=== PATIENT | male | born 1935 | race Caucasian/White ===

== ENCOUNTER 2017-12-12 10:07 | Inpatient (IN) ==
[2017-12-12] MEDS: 0.9 % SODIUM CHLORIDE 1,000 ML IV SCH ×2 (10:25→14:29)
--- NOTE | 2017-12-12 10:36 | Emergency Department Note ---
Male Urogenital HPI - General Chief complaint: Urogenital-Male Stated complaint: UTI/decreased loc Time Seen by Provider: 12/12/17 10:25 Source: EMS Mode of arrival: EMS Limitations: altered mental status - History of Present Illness HPI Narrative: 82-year-old male [facility] for a history of some hematuria. 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 Patient has a history of seizure disorders been having seizure frequently in the last 2 months he is currently on Keppra. Is any chest pain no shortness of breath CT abdomen pelvis have been recommended by staff at the [facility] complain is increased weakness. - Related Data Home Medications Medication Instructions Recorded Confirmed Aspirin [Jeovany Chewable Aspirin] 81 mg PO DAILY 09/18/17 09/18/17 Citalopram [Celexa] 20 mg PO HS 09/18/17 09/18/17 Dabigatran Etexilate Mesylate 150 mg PO BID 09/18/17 09/18/17 [Pradaxa] Fish Oil 1,000 mg PO DAILY 09/18/17 09/18/17 Glucosamine/D3/Boswellia Myrna 1 each PO DAILY 09/18/17 09/18/17 [Glucosamine-Vitamin D3 Caplet] HYDROcodone/ACETAMINOPHEN [Ocate 1 each PO PRN PRN 09/18/17 09/18/17 7.5-325 Tablet] Insulin Glargine,Hum.rec.anlog 42 unit SQ DAILY 09/18/17 09/18/17 [Lantus Solostar] Insulin Glargine,Hum.rec.anlog 50 unit SQ HS 09/18/17 09/18/17 [Lantus Solostar] Levothyroxine Sodium 200 mcg PO DAILY 09/18/17 09/18/17 Losartan Potassium [Cozaar] 25 mg PO DAILY 09/18/17 09/18/17 Multivitamin [Men's Multi-Vitamin] 1 each PO DAILY 09/18/17 09/18/17 Sennosides [Senna] 8.6 mg PO DAILY 09/18/17 09/18/17 Tamsulosin [Flomax] 0.4 mg PO HS 09/18/17 09/18/17 Topiramate [Topamax] 25 mg PO BID 09/18/17 09/18/17 levETIRAcetam [Keppra] 500 mg PO BID 09/18/17 09/18/17 metFORMIN HCL [Glucophage] 500 mg PO BID 09/18/17 09/18/17 Previous Rx's Medication Instructions Recorded Cephalexin [Keflex] 500 mg PO TID #30 cap 09/18/17 Allergies Allergy/AdvReac Type Severity Reaction Status Date / Time atorvastatin [From Lipitor] AdvReac Intermediate Muscle Pain Verified 12/12/17 10:07 Review of Systems All systems ED: reviewed and negative except as stated. Constitutional: Denies: fever, chills Eyes: Denies: eye pain ENT ED: Denies: ear pain Cardiovascular: Denies: chest pain Respiratory: Denies: shortness of breath Gastrointestinal: Denies: abdominal pain Genitourinary: Denies: dysuria Musculoskeletal: Denies: back pain Integumentary: Denies: rash Neurological: Denies: headache Psychiatric: Denies: anxiety Endocrine: Denies: fatigue Hematological/Lymphatic: Denies: easy bleeding Allergic/Immunologic: Denies: facial swelling Past Medical History - Past Medical History Medical history: Reports: CVA, DM, hypertension, thyroid disease, other Surgical history ED: Reports: cataract, other (Pacemaker) Family history: Reports: non-contributory - Social History smoking status: Current every day smoker Alcohol use: Reports: None Drug use: Reports: unknown Physical Exam Limitations: altered mental status General appearance: alert Head: atraumatic Eye: Present: normal appearance, PERRL ENT: normal exam, normal oropharynx, mucous membranes moist Neck: Present: normal inspection, full ROM, trachea midline Chest: Present: normal inspection Respiratory: Present: normal lung sounds bilaterally, respiratory distress. Absent: wheezes, stridor Cardiovascular: Present: regular rate, normal rhythm. Absent: bradycardia, tachycardia Abdominal: Present: soft, normal bowel sounds. Absent: distention, tenderness, guarding, rebound, rigidity Extremities: Present: normal inspection, full ROM Back: Present: normal inspection, full ROM Neurological: Present: alert, oriented X3, CN II-XII intact, normal gait. Absent: motor sensory deficit Psychiatric: Present: normal affect, normal mood Course Vital Signs Temperature 97.9 F 12/12/17 10:08 Pulse Rate 70 12/12/17 10:08 Respiratory Rate 17 12/12/17 10:08 Blood Pressure 106/62 12/12/17 10:08 Pulse Oximetry (%) 95 12/12/17 10:08 Temperature 97.9 F 12/12/17 10:08 Pulse Rate 72 12/12/17 13:20 Respiratory Rate 23 H 12/12/17 13:20 Blood Pressure 103/61 12/12/17 13:01 Pulse Oximetry (%) 93 12/12/17 13:20 Urogenital-Male - MDM Narrative Medical decision making narrative: lactic is 2.5 denies any urgency frequency or dysuria patient has lactic acid of 2.5 there was [address] of the abdomen and pelvis revealed bilateral infiltrates to the lower lobes. Diagnosis pneumonia. Was here who is the POA stable him comfort care only with no procedures.(for his hematuria) Dr. Stover contacted and patient to be admitted on Rocephin and Levaquin cultures have been drawn - Lab Data Result diagrams: 12/12/17 10:29 Lab Results 12/12/17 12/12/17 12/12/17 Range/Units 10:29 10:29 10:29 WBC 4.7 (4.5-11.0) K/mcL RBC 3.21 L (4.50-5.90) M/mcL Hgb 9.9 L (13.5-16.5) g/dL Hct 29.3 L (41.0-55.0) % POC Hct 28.0 L (41.0-55.0) % MCV 91.1 (80.0-100.0) fL MCH 30.9 (26.0-34.0) pg MCHC 33.9 (31.0-36.0) g/dL RDW 12.8 (11.5-14.5) % Plt Count 198 (140-440) K/mcL MPV 7.7 (7.4-10.4) fL Total Counted 100 Seg Neutrophils % 60 (38-78) % Band Neutrophils % 20 H (0-10) % Lymphocytes % 13 L (15-49) % Monocytes % (Manual) 5 (1-12) % Eosinophils % (Manual) 2 (0-7) % Platelet Estimate Normal (NORMAL) RBC Morphology Normal (NORMAL) VBG Lactic Acid 2.5 H (0.5-2.2) mmol/L POC Sodium 133 (133-145) mmol/L POC Potassium 4.2 (3.3-5.1) mmol/L POC Chloride 103 (96-108) mmol/L POC Total CO2 19 L (22-30) mmol/L POC BUN 36 H (8-23) mg/dl POC Creatinine 1.7 H (0.7-1.2) mg/dl POC Glucose 142 H (70-105) mg/dL POC WB Ioniz Calcium 1.19 (1.16-1.32) mmol/L Urine Color Urine Appearance Urine pH (5.0-9.0) Ur Specific [place] (1.000-1.035) Urine Protein (NEG) mg/dL Urine Glucose (UA) (NEG) mg/dL Urine Ketones (NEG) mg/dL Urine Occult Blood (<0.03) mg/dL Urine Nitrate (NEG) Urine Bilirubin (NEG) mg/dL Urine Urobilinogen (NEG) mg/dL Ur Leukocyte Esterase (NEG) /uL Urine RBC (0-1) /hpf Urine WBC (0-4) /hpf Ur Squamous Epith Cells (0-4) /hpf Ur Transition Epith Cell (0-2) /hpf Amorphous Crystals (0) /hpf Urine Bacteria (0) /hpf Ur Culture Indicated? 12/12/17 Range/Units 11:37 WBC (4.5-11.0) K/mcL RBC (4.50-5.90) M/mcL Hgb (13.5-16.5) g/dL Hct (41.0-55.0) % POC Hct (41.0-55.0) % MCV (80.0-100.0) fL MCH (26.0-34.0) pg MCHC (31.0-36.0) g/dL RDW (11.5-14.5) % Plt Count (140-440) K/mcL MPV (7.4-10.4) fL Total Counted Seg Neutrophils % (38-78) % Band Neutrophils % (0-10) % Lymphocytes % (15-49) % Monocytes % (Manual) (1-12) % Eosinophils % (Manual) (0-7) % Platelet Estimate (NORMAL) RBC Morphology (NORMAL) VBG Lactic Acid (0.5-2.2) mmol/L POC Sodium (133-145) mmol/L POC Potassium (3.3-5.1) mmol/L POC Chloride (96-108) mmol/L POC Total CO2 (22-30) mmol/L POC BUN (8-23) mg/dl POC Creatinine (0.7-1.2) mg/dl POC Glucose (70-105) mg/dL POC WB Ioniz Calcium (1.16-1.32) mmol/L Urine Color Ailyn Urine Appearance Cloudy Urine pH 5.0 (5.0-9.0) Ur Specific [place] 1.024 (1.000-1.035) Urine Protein 100 A (NEG) mg/dL Urine Glucose (UA) Negative (NEG) mg/dL Urine Ketones Neg (NEG) mg/dL Urine Occult Blood >=1.0 A (<0.03) mg/dL Urine Nitrate Neg (NEG) Urine Bilirubin Neg (NEG) mg/dL Urine Urobilinogen Neg (NEG) mg/dL Ur Leukocyte Esterase Neg (NEG) /uL Urine RBC > 182 H (0-1) /hpf Urine WBC 22 H (0-4) /hpf Ur Squamous Epith Cells 0 (0-4) /hpf Ur Transition Epith Cell 2 (0-2) /hpf Amorphous Crystals Few A (0) /hpf Urine Bacteria 0 (0) /hpf Ur Culture Indicated? Yes Disposition Pt seen by NEUROSURGERY RESEARCH DIRECTOR/PA only: No Clinical Impression: Hematuria Lower lobe pneumonia Qualifiers: Pneumonia type: due to unspecified organism Laterality: bilateral Qualified Code(s): J18.9 - Pneumonia, unspecified organism Disposition: Xfer As Inpt ([facility]) Condition: Fair Referrals: Enmanuel Mullins DO [Primary Care Provider] -
[2017-12-12 11:19] LABS: Mean Cell Volume 91.1 fL (80.0-100.0); Mean Corpuscular HGB Conc 33.9 g/dL (31.0-36.0); Mean Corpuscular Hemoglobin 30.9 pg (26.0-34.0); Platelet Count 198 K/mcL (140-440); RBC 3.21 M/mcL (4.50-5.90); Red Cell Distribution Width 12.8 % (11.5-14.5)
[2017-12-12 11:56] LABS: Band Neutrophils % 20 % (0-10); Eosinophils % (Manual) 2 % (0-7); Lymphocytes % 13 % (15-49); Monocytes % (Manual) 5 % (1-12); Platelet Estimate NORMAL (NORMAL); RBC Morphology NORMAL (NORMAL); Segmented Neutrophils % 60 % (38-78)
[2017-12-12 12:08] LABS: Appearance,Urine CLOUDY; Bacteria,Urine 0 /hpf (0); Bilirubin,Urine NEG (NEG); Color,Urine AMBER; Glucose,Urine (UA) NEGATIVE (NEG); Leukocyte Esterase,Urine NEG /uL (NEG); Nitrate,Urine NEG (NEG); Protein,Urine 100 mg/dL (NEG); Specific Gravity,Urine 1.024 (1.000-1.035); Urine Amorphous Crystals FEW /hpf (0); Urine Blood >=1.0 mg/dL (<0.03); Urine RBC > 182 /hpf (0-1); Urine Squamous Epithelial Cell 0 /hpf (0-4); Urine Transitional Epi Cells 2 /hpf (0-2); Urine WBC 22 /hpf (0-4); Urobilinogen,Urine NEG (NEG)
--- NOTE | 2017-12-12 12:10 | XRay Report ---
INDICATION: Chest pain TECHNIQUE: AP chest x-ray,portable upright COMPARISON: 09/18/2017, 09/03/2017 FINDINGS:No change in left transvenous pacemaker leads. Mild cardiomegaly is unchanged. Pulmonary vascularity is within normal limits. No pulmonary edema. No pulmonary congestion. Mild right basilar pulmonary parenchymal densities most consistent with mild atelectasis. No parenchymal consolidation. No evidence for pleural fluid. IMPRESSION: 1. Mild cardiomegaly. No pulmonary congestion with pulmonary edema 2. Subtle right basilar parenchymal density most consistent with atelectasis Interpreted and Authenticated by: Kolton Kidd 12/12/17
--- NOTE | 2017-12-12 12:59 | Cat Scan Report ---
CLINICAL INFORMATION: Hematuria COMPARISON: None. TECHNIQUE: Axial images were obtained through the abdomen and pelvis. Sagittally and coronally reformatted images. FINDINGS: Poor quality examination. There is motion artifact. Patient's arms were over the abdomen. 3 mm nonobstructing right lower pole renal calculus. No other obstructing or nonobstructing calculi. Renal pelves are prominent bilaterally. There is mild left hydronephrosis. There are several small calcifications in the pelvis. These appear to be adjacent to the distal left ureter rather than within it. There is a Gould catheter in the urinary bladder. There is an appearance consistent with diffuse bladder wall thickening. There is mildly dense material within the urinary bladder lumen which suggests blood. Bilateral lower lobe pulmonary parenchymal infiltrates, right worse in left. No pleural fluid. No pericardial fluid. There is cardiomegaly. There is a moderate hiatal hernia. Liver is negative to limits of noncontrast enhanced examination. Gallbladder is mildly distended. No calcified gallstones. No dilated bile ducts. Negative spleen. Adrenal glands are enlarged bilaterally. No detectable pancreatic mass. No evidence for pancreatitis. No intra-abdominal abscess. No pneumoperitoneum. No biliary or portal venous gas. There is minimal free fluid within the pelvis. Colon is negative. No colonic mass identified. No evidence for diverticulitis or appendicitis. No mechanical small bowel obstruction. Severe multilevel degenerative disc disease. There is a compression deformity of the L1 vertebral body which appears chronic. There is calcification of the abdominal aorta. Distal abdominal aorta measures 2 cm in cross-sectional diameter. No sacral fracture. No pelvic fracture. No lytic lesion. IMPRESSION: 1. Abnormal urinary bladder. There appears to be diffuse bladder wall thickening and there is probable intravesical hemorrhage. 2. Mild left hydronephrosis. Nonobstructing right lower pole renal stone 3. Bilateral lower lobe pulmonary parenchymal infiltrates 4. Moderate hiatal hernia The exam was performed using radiation dose optimization techniques including, but not limited to, automated exposure control, adjustment of the mA and/or kV according to patient size and use of iterative reconstruction technique. Interpreted and Authenticated by: Kolton Kidd 12/12/17
[2017-12-12] MEDS ORDERED: cefTRIAXone 1 GM VIAL IV SCH (13:30)
[2017-12-12] MEDS ORDERED: LEVOFLOXACIN 500 MG/100 ML BAG IV ONE (13:45)
[2017-12-12] MEDS ORDERED: traZODone HCL 50 MG TABLET PO PRN (16:02)
[2017-12-12] MEDS ORDERED: ACETAMINOPHEN 325 MG TABLET PO PRN (16:02)
[2017-12-12] MEDS ORDERED: IPRATROPIUM/ALBUTEROL 3 ML AMPUL.NEB NEB PRN (16:02)
[2017-12-12] MEDS ORDERED: ACETAMINOPHEN 1,000 MG/100 ML BOTTLE IV PRN (16:02)
[2017-12-12] MEDS ORDERED: cefTRIAXone 2 GM in DEXTROSE 5% IN WATER 50 ML IV SCH (16:02)
[2017-12-12] MEDS ORDERED: POTASSIUM CHLORIDE 20 MEQ PACKET PO PRN (16:02)
[2017-12-12] MEDS ORDERED: ONDANSETRON 4 MG/2 ML VIAL IV PRN (16:02)
[2017-12-12] MEDS: LACTATED RINGERS 1,000 ML IV SCH (17:00)
[2017-12-12] MEDS ORDERED: cefTRIAXone 1 GM VIAL IV ONE (17:00)
[2017-12-12] MEDS ORDERED: VANCOMYCIN PER PHARMACY IV SCH (17:31)
[2017-12-12] MEDS ORDERED: LEVOFLOXACIN 250 MG/50 ML BAG IV ONE (18:00)
[2017-12-12] MEDS: PIPERACILLIN SODIUM/TAZOBACTAM 2.25 GM in DEXTROSE 5% IN WATER 50 ML IV SCH ×2 (18:53→23:55)
[2017-12-12] MEDS: VANCOMYCIN 1,000 MG in 0.9 % SODIUM CHLORIDE 250 ML IV SCH (20:02)
[2017-12-12] MEDS: BUDESONIDE 0.5 MG/2 ML AMPUL.NEB NEB SCH (20:46)
[2017-12-12] MEDS: CYANOCOBALAMIN (VITAMIN B-12) 500 MCG TABLET PO SCH (21:15)
[2017-12-12] MEDS: HEPARIN 5,000 UNIT/ML VIAL SQ SCH (21:16)
[2017-12-12] MEDS: SENNOSIDES/DOCUSATE SODIUM 1 TAB TABLET PO SCH (21:16)
[2017-12-12] MEDS: DOCUSATE SODIUM 100 MG CAPSULE PO SCH (21:16)
--- NOTE | 2017-12-12 21:30 | History and Physical Report ---
DATE OF ADMISSION: 12/12/2017 PRIMARY CARE PHYSICIAN: Enmanuel Mullins DO DATE OF ADMISSION: 12/12/2017 REASON FOR ADMISSION: Referred from the [facility] by Dr. Radu Sommer for hematuria, weakness and likely UTI. HISTORY OF CHIEF COMPLAINT: The patient is an 82-year-old who is a resident of [facility], was found to be lethargic, in a confused state this morning and was subsequently referred to [facility] ER for further evaluation. The patient has had intermittent urinary outlet obstruction and had a Gould catheter placed roughly a week and a half ago. He has been recently treated for UTI. Today initial workup was significant for bibasilar infiltrates on CT along with pyuria on UA along with 20 percent bands. Subsequently, the patient received antibiotics and the Hospitalist Service was consulted. At the time of examination, the patient is accompanied with his son-in-law and daughter. The patient endorses to vigorous shaking chills and rigors. However, he is able to respond to questions. He is minimally short of breath. He has been getting progressively weak over the last few days and has lost appetite. He has not had much urine output in the last 24 hours. The patient carries a history of seizures, but there has not been any weakness or seizure in the last 24 hours. He denies chest pain, diarrhea, dysuria, headache, or photophobia. He further denies nausea, vomiting. He endorses to fever. REVIEW OF SYSTEMS: Ten-point review of system was performed and negative except the ones discussed above. PAST MEDICAL HISTORY: 1. History of atrial fibrillation. 2. Anticoagulation, on dabigatran. 3. Anxiety disorder. 4. Diabetes mellitus type 2, insulin-dependent. 5. Hypothyroidism 6. Hypertension. 7. BPH. 8. Penile cancer. 9. Seizure disorder. CURRENT MEDICATIONS: Metformin 500 twice daily Keppra 500 twice daily. Topamax 25 twice daily. Tamsulosin 0.4 at bedtime. Synthroid 0.6 daily. Multivitamin 1 tab daily. Losartan 25 daily. Levothyroxine 200 daily. Glargine 15 units at bedtime and 42 units a.m. Pradaxa 150 mg twice daily. Citalopram 20 at bedtime. Aspirin 81 mg daily. ALLERGIES: Known to ATORVASTATIN. FAMILY HISTORY: Nonrelevant given advanced age. SOCIAL HISTORY: He resides at [facility]. He is retired. Daily smoker. No history of alcohol or drug use. PHYSICAL EXAMINATION: GENERAL EXAM: The patient is in moderate discomfort from vigorous rigors, shakes. BMI 22. Height 5 feet 9 inches. VITAL SIGNS: Blood pressure 95/70, respiratory rate 18, temperature 97.9, pulse 72 and regular, sats 96 percent on room air. HEENT: Pupils symmetric. Oral cavity dry. No ear or nose discharge. Head is normocephalic, atraumatic. NECK: No lymphadenopathy. HEART: S1 and S2. Irregular rhythm. ESM grade II at the aortic area. Diminished breath sounds bilateral. CHEST: __ crackles bilateral lateral and posterior chest. ABDOMEN: Soft, nontender. LOWER EXTREMITY EXAMINATION: No cyanosis or clubbing. No joint swelling. SKIN: No suspicious lesion. GENITOURINARY EXAMINATION: Gould is draining concentrated urine. PSYCHIATRIC: Alert, cooperative, mild anxiety. NEURO: Moving all four extremities. Nonfocal. LABS AND IMAGING: White count 4.7, hemoglobin 9.9, bands 20 percent. Lactic acid 2.5. Sodium 130, potassium 4.2, creatinine 1.7, BUN 36. Procalcitonin pending. UA significant for pyuria. ASSESSMENT AND PLAN: An 82-year-old retirement resident admitted with bilateral lower lobe pneumonia along with complicated urinary tract infection and acute renal failure. 1. Bilateral lower lobe pneumonia, aspiration versus nosocomial. Continue empiric coverage with Zosyn, Levaquin and vancomycin. Continue aspiration precautions. ST evaluation.curb 65 score 3, pneumonia severity index oh 100. 2. Severe sepsis with bandemia and source including urinary tract infection and bilateral chest infiltrates. Continue management per guidelines. Elevated lactate. Continue crystalloids. The patient is a high risk mortality with [place] score of 16. Family made aware. However, the patient and family requested DO NOT RESUSCITATE and NO INTENSIVE CARE UNIT or AGGRESSIVE INTERVENTION EXCEPT FOR ANTIBIOTICS and FLUIDS which will be continued on medical floor. 3. Acute renal failure, sepsis, end organ dysfunction. Continue monitoring. Continue crystalloids. Avoid nephrotoxins. 4. Complicated urinary tract infection, catheter related. Continue antibiotic coverage. 5. Other prior medical issues including: a. History of anxiety disorder. Continue citalopram. b. Anticoagulation. Continued on dabigatran. c. Diabetes mellitus type 2. Continue basal prandial insulin. d. History of seizure disorder. Continue Keppra. e. Hypertension. Continue losartan. f. Hypothyroidism. Continue thyroxine. g. History of penile cancer, slight benign prostatic hypertrophy. Continue tamsulosin. PLAN FOR TODAY: 1. Medical management as above. 2. Antibiotic coverage. 3. Renal function monitoring. 4. Crystalloids. 5. Physical therapy 6. Overall, a high risk admission in this patient with [place] score over 15. AA:raquel Job ID: [id number] Doc ID: [id number] Jeremias Sommer MD [id number]
[2017-12-12] MEDS: 0.9 % SODIUM CHLORIDE 10 ML SYRINGE IV SCH (22:04)
[2017-12-13] MEDS: LACTATED RINGERS 1,000 ML IV SCH ×4 (02:14→20:50)
[2017-12-13] MEDS: PIPERACILLIN SODIUM/TAZOBACTAM 2.25 GM in DEXTROSE 5% IN WATER 50 ML IV SCH ×3 (05:21→17:26)
[2017-12-13] MEDS: 0.9 % SODIUM CHLORIDE 10 ML SYRINGE IV SCH ×3 (05:31→21:37)
[2017-12-13 06:44] LABS: Mean Cell Volume 91.9 fL (80.0-100.0); Mean Corpuscular HGB Conc 33.6 g/dL (31.0-36.0); Mean Corpuscular Hemoglobin 30.8 pg (26.0-34.0); Platelet Count 176 K/mcL (140-440); RBC 2.96 M/mcL (4.50-5.90); Red Cell Distribution Width 12.7 % (11.5-14.5)
[2017-12-13 06:59] LABS: ALT/SGPT 18 U/l (0-40); Albumin 2.7 gm/dL (3.2-5.2); Albumin/Globulin Ratio 1.3 (1.0-2.3); Alkaline Phosphatase 77 U/L (39-117); Bilirubin,Direct < 0.2 mg/dL (0.0-0.3); Blood Urea Nitrogen 35 mg/dl (8-23); Gamma Glutamyl Transpeptidase 29 U/L (8-61); Magnesium 1.7 mg/dL (1.6-2.5); Uric Acid 3.3 mg/dL (2.5-8.0)
[2017-12-13 08:03] LABS: Band Neutrophils % 23 % (0-10); Eosinophils % (Manual) 1 % (0-7); Lymphocytes % 7 % (15-49); Monocytes % (Manual) 5 % (1-12); Platelet Estimate NORMAL (NORMAL); RBC Morphology NORMAL (NORMAL); Segmented Neutrophils % 64 % (38-78)
[2017-12-13] MEDS ORDERED: cefTRIAXone 2 GM VIAL IV SCH (09:00)
[2017-12-13] MEDS ORDERED: THIAMINE 100 MG in 0.9 % SODIUM CHLORIDE 50 ML IV SCH (09:00)
[2017-12-13] MEDS: BUDESONIDE 0.5 MG/2 ML AMPUL.NEB NEB SCH ×3 (09:03→22:32)
[2017-12-13] MEDS: VANCOMYCIN 1,000 MG in 0.9 % SODIUM CHLORIDE 250 ML IV SCH (10:24)
[2017-12-13] MEDS: HEPARIN 5,000 UNIT/ML VIAL SQ SCH (10:32)
[2017-12-13] MEDS: DOCUSATE SODIUM 100 MG CAPSULE PO SCH ×2 (12:24→21:03)
[2017-12-13] MEDS: THIAMINE 100 MG TABLET PO SCH (12:25)
[2017-12-13] MEDS: MULTIVIT,THER IRON,CA,FA & MIN 1 TABLET PO SCH (12:25)
[2017-12-13] MEDS: CYANOCOBALAMIN (VITAMIN B-12) 500 MCG TABLET PO SCH ×2 (12:25→20:51)
--- NOTE | 2017-12-13 14:52 | Internal Med Progress Note ---
Medical - PN: Subj Patient information: Note initiated : 12/13/17 at 2:49 pm Service Date, if different from initiated Date: [] Patient: Darlene Douglas 82 y/o M admitted on 12/12/17 for UTI, Decreased LOC/ Bilateral Lower Lobe Pneumonia. Chief Complaint: [] Interval history: 12/12-patient admitted with complicated UTI/pneumonia and sepsiswith evidence of end organ dysfunction. Elevated creatinine 1.7. Bandemia 20%. Critically ill. However DNR and hence admitted to medical floor. [place] score 16. Family aware of poor prognosis. 12/13-patient clinically responding to antibiotic coveragefor nosocomial pathogens.restart home meds. No overnight shortness of breath chest pain confusion and weakness. Daughter at bedside. Discussed treatment plan and possible transfer to SNF if patient continues to improve over the next 48-72 hours. No active concerns - Constitutional Vitals: Vital Signs Temp Pulse Resp BP Pulse Ox 97.1 F 70 20 119/67 96 12/13/17 11:00 12/13/17 09:19 12/13/17 11:00 12/13/17 11:00 12/13/17 11:00 Period Temp Pulse Resp BP Sys/Zeng Pulse Ox Last 24 Hr 97.1 F-101.8 F 65-73 12-24 95-199/55-176 89-97 Intake and Output 12/13/17 12/13/17 12/13/17 05:59 13:59 21:59 Intake Total 1550 / 1550 540 / 540 Output Total 475 / 475 Balance 1075 / 1075 540 / 540 Intake & Output: Intake & Output 12/13/17 12/13/17 12/13/17 05:59 13:59 21:59 Intake Total 1550 / 1550 540 / 540 Output Total 475 / 475 Balance 1075 / 1075 540 / 540 Intake: IV 1200 / 1200 300 / 300 Lactated Ringers 1,000 ml @ 100 1000 / 1000 mls/hr IV .Q10H MARLA Rx#: [id number] Zosyn 2.25 gm In Dextrose 5% in 100 / 100 50 / 50 Water 50 ml @ 100 mls/hr IV Q6H MARLA Rx#:[id number] Vancomycin 1,000 mg In Sodium 250 / 250 Chloride 0.9% 250 ml @ 250 mls/ hr IV Q24H MARLA Rx#:[id number] Oral 350 / 350 240 / 240 Output: Urine Catheter Amount 475 / 475 Other: Meal Breakfast Percent of Meal Consumed 50% Feeding Ability Total Assistance General appearance: cooperative, no acute distress Exam: alertbut minimally anxious nonlabored breathing No pallor or lymphedema nondistended abdomen Medical - PN: Obj Da - Labs CBC & Chem 7: 12/13/17 05:15 12/13/17 05:15 Labs: Abnormal Lab Results 12/13/17 12/13/17 12/12/17 05:15 05:15 11:37 WBC 3.8 L RBC 2.96 L Hgb 9.1 L Hct 27.2 L POC Hct Band Neutrophils % 23 H Lymphocytes % 7 L VBG Lactic Acid Carbon Dioxide 19 L POC Total CO2 POC BUN BUN 35 H POC Creatinine POC Glucose Calcium 7.9 L Total Protein 4.8 L Albumin 2.7 L Globulin 2.1 L Triglycerides 192 H Urine Protein 100 A Urine Occult Blood >=1.0 A Urine RBC > 182 H Urine WBC 22 H Amorphous Crystals Few A 12/12/17 12/12/17 12/12/17 10:29 10:29 10:29 WBC RBC 3.21 L Hgb 9.9 L Hct 29.3 L POC Hct 28.0 L Band Neutrophils % 20 H Lymphocytes % 13 L VBG Lactic Acid 2.5 H Carbon Dioxide POC Total CO2 19 L POC BUN 36 H BUN POC Creatinine 1.7 H POC Glucose 142 H Calcium Total Protein Albumin Globulin Triglycerides Urine Protein Urine Occult Blood Urine RBC Urine WBC Amorphous Crystals Meds: Medications Acetaminophen (Tylenol) 650 mg PO Q4-6HP PRN PRN Reason: PAIN/FEVER > 101 Albuterol/Ipratropium (Duoneb) 3 ml NEB Q4HP PRN PRN Reason: Shortness Of Breath Budesonide (Pulmicort) 0.5 mg NEB Q12 [facility] Last Admin: 12/13/17 09:03 Dose: 0.5 mg Cyanocobalamin (Vitamin B-12) 1,000 mcg PO BID [facility] Stop: 12/17/17 09:01 Last Admin: 12/13/17 12:25 Dose: 1,000 mcg Docusate Sodium (Colace) 100 mg PO BID [facility] Last Admin: 12/13/17 12:24 Dose: 100 mg Heparin Sodium (Porcine) (Heparin) 5,000 unit SQ Q12 [facility] Last Admin: 12/13/17 10:32 Dose: 5,000 unit Lactated Ringer's (Lactated Ringers) 1,000 mls @ 100 mls/hr IV .Q10H [facility] Stop: 12/13/17 22:01 Last Admin: 12/13/17 11:57 Dose: Not Given Levofloxacin (Levaquin) 750 mg in 150 mls @ 100 mls/hr IV Q48H [facility] Magnesium Sulfate (Magnesium Sulfate) 2 gm in 50 mls @ 50 mls/hr IV UD PRN PRN Reason: MG = or < 1.7 Acetaminophen (Ofirmev) 1,000 mg in 100 mls @ 200 mls/hr IV Q6HP PRN PRN Reason: PAIN/FEVER > 101 Last Infusion: 12/13/17 00:55 Dose: Infused Piperacillin Sod/Tazobactam (Sod 2.25 gm/ Dextrose) 50 mls @ 100 mls/hr IV Q6H [facility] Last Infusion: 12/13/17 12:43 Dose: Infused Vancomycin HCl 1,000 mg/ (Sodium Chloride) 250 mls @ 250 mls/hr IV Q24H [facility] Last Infusion: 12/13/17 11:24 Dose: Infused Iron Carb/Multivit/[place]/Folic Acid (Multivitamin W/Minerals) 1 tab PO DAILY [facility] Last Admin: 12/13/17 12:25 Dose: 1 tab Ondansetron HCl (Zofran) 4 mg IV Q4-6HP PRN PRN Reason: Nausea And Vomiting Potassium Chloride (Klor-Con) 40 meq PO DAILYP PRN PRN Reason: K+ < 3.5 Senna/Docusate Sodium (Senna Plus Tablet) 1 tab PO HS [facility] Last Admin: 12/12/17 21:16 Dose: 1 tab Sodium Chloride (Saline Flush) 10 ml IV Q8 [facility] Last Admin: 12/13/17 14:11 Dose: Not Given Thiamine HCl (Vitamin B1) 100 mg PO DAILY [facility] Stop: 12/15/17 09:01 Last Admin: 12/13/17 12:25 Dose: 100 mg Trazodone HCl (Desyrel) 50 mg PO HSP PRN PRN Reason: Insomnia Vancomycin HCl (Vancomycin Per Pharmacy) 1 order IV UD [facility] Medical - PN: A/P - Time Spent With Patient Total time spent is greater than 50% in coordination of care (as documented) at patient's floor/unit and/or counseling patient: 25 - 35 minutes (1) Nosocomial pneumonia Status: Acute Assessment and plan: * Bilateral lower lobe nosocomial pneumonia-continue broad antibiotic coverage. Pulmonary toilet. * Severe sepsis with end organ dysfunction including renal failure status change. Clinically improving. Bandemia 23%. * Complicated UTI on antibiotic coverage. * acute kidney injury clinic creatinine improved from 1.7-1.2 * Anxiety disorder continue home dose citalopram * Anticoagulation on Pradaxa * History of seizure disorder continue Keppra/Topamax * History of hypertension restart losartan once systolics over 140 * Mister penile cancer/BPH on tamsulosin * DM type II on basal prandial insulin * DNR Plan * Continue antibiotic coverage * Monitor renal function * Pre-existing medical condition management as above Current Visit: Yes
[2017-12-13] MEDS ORDERED: HYDROCODONE/APAP 7.5/325MG TABLET PO PRN (15:03)
[2017-12-13] MEDS: metFORMIN 500 MG TABLET PO SCH (17:26)
[2017-12-13] MEDS: OMEPRAZOLE 20 MG CAPSULE PO SCH (20:51)
[2017-12-13] MEDS: levETIRAcetam 500 MG TABLET PO SCH (20:51)
[2017-12-13] MEDS: TOPIRAMATE 25 MG TABLET PO SCH (20:52)
[2017-12-13] MEDS: DABIGATRAN ETEXILATE MESYLATE 75 MG CAPSULE PO SCH (20:52)
[2017-12-13] MEDS: TAMSULOSIN 0.4 MG CAPSULE PO SCH (20:52)
[2017-12-13] MEDS ORDERED: SENNOSIDES 1 TABLET PO SCH (21:00)
[2017-12-13] MEDS: SENNOSIDES/DOCUSATE SODIUM 1 TAB TABLET PO SCH (21:03)
[2017-12-14] MEDS: PIPERACILLIN SODIUM/TAZOBACTAM 2.25 GM in DEXTROSE 5% IN WATER 50 ML IV SCH ×5 (00:33→23:38)
[2017-12-14] MEDS: 0.9 % SODIUM CHLORIDE 10 ML SYRINGE IV SCH ×4 (05:20→22:37)
[2017-12-14 07:00] LABS: Mean Corpuscular HGB Conc 33.3 g/dL (31.0-36.0); Mean Corpuscular Hemoglobin 30.6 pg (26.0-34.0); Platelet Count 160 K/mcL (140-440); Red Cell Distribution Width 12.5 % (11.5-14.5)
[2017-12-14 07:34] LABS: ALT/SGPT 20 U/l (0-40); Albumin 2.4 gm/dL (3.2-5.2); Alkaline Phosphatase 79 U/L (39-117); Bilirubin,Direct < 0.2 mg/dL (0.0-0.3); Blood Urea Nitrogen 23 mg/dl (8-23); Gamma Glutamyl Transpeptidase 30 U/L (8-61); Magnesium 1.5 mg/dL (1.6-2.5); Uric Acid 2.1 mg/dL (2.5-8.0)
--- NOTE | 2017-12-14 07:35 | XRay Report ---
INDICATION: Pneumonia TECHNIQUE: AP chest x-ray,semierect portable COMPARISON: 12/12/2017, 09/18/2017 FINDINGS:No change in left transvenous pacemaker leads. Mildly elevated right hemidiaphragm, unchanged. Mild right basilar infiltrate is also stable. This may be due to atelectasis or pneumonia. No new abnormalities. No evidence for congestive heart failure. IMPRESSION: 1. No significant interval change since 12/12/2017 2. Mild right basilar density. Pneumonia is possible. Interpreted and Authenticated by: Kolton Kidd 12/14/17
[2017-12-14] MEDS: LEVOTHYROXINE 100 MCG TABLET PO SCH (07:43)
[2017-12-14] MEDS: metFORMIN 500 MG TABLET PO SCH ×2 (07:44→20:01)
[2017-12-14 08:29] LABS: Band Neutrophils % 20 % (0-10); Eosinophils % (Manual) 1 % (0-7); Lymphocytes % 14 % (15-49); Monocytes % (Manual) 6 % (1-12); Platelet Estimate NORMAL (NORMAL); RBC Morphology NORMAL (NORMAL); Segmented Neutrophils % 59 % (38-78)
[2017-12-14] MEDS: BUDESONIDE 0.5 MG/2 ML AMPUL.NEB NEB SCH ×2 (08:59→20:21)
[2017-12-14] MEDS ORDERED: MULTIVITAMIN PO SCH (09:00)
[2017-12-14] MEDS ORDERED: 0.9 % SODIUM CHLORIDE 10 ML SYRINGE IV PRN (09:27)
[2017-12-14] MEDS ORDERED: LEVOFLOXACIN 750 MG/150 ML BAG IV SCH (10:00)
[2017-12-14] MEDS: MULTIVIT,THER IRON,CA,FA & MIN 1 TABLET PO SCH (10:35)
[2017-12-14] MEDS: ASPIRIN 81 MG TAB.CHEW PO SCH (10:35)
[2017-12-14] MEDS: DOCUSATE SODIUM 100 MG CAPSULE PO SCH ×2 (10:35→19:57)
[2017-12-14] MEDS: levETIRAcetam 500 MG TABLET PO SCH ×2 (10:35→19:55)
[2017-12-14] MEDS: DABIGATRAN ETEXILATE MESYLATE 75 MG CAPSULE PO SCH ×2 (10:35→19:57)
[2017-12-14] MEDS: LOSARTAN 25 MG TABLET PO SCH (10:36)
[2017-12-14] MEDS: INSULIN GLARGINE, HUMAN 1 UNIT/0.01 ML SQ SCH (10:36)
[2017-12-14] MEDS: SERTRALINE 50 MG TABLET PO SCH (11:06)
[2017-12-14] MEDS: CYANOCOBALAMIN (VITAMIN B-12) 500 MCG TABLET PO SCH ×2 (11:06→19:57)
[2017-12-14] MEDS: TOPIRAMATE 25 MG TABLET PO SCH ×2 (11:07→19:56)
[2017-12-14] MEDS: THIAMINE 100 MG TABLET PO SCH (11:07)
--- NOTE | 2017-12-14 11:32 | Internal Med Progress Note ---
Medical - PN: Subj Patient information: Note initiated : 12/14/17 at 11:27 am Service Date, if different from initiated Date: [] Patient: Darlene Douglas 82 y/o M admitted on 12/12/17 for UTI, Decreased LOC/ Bilateral Lower Lobe Pneumonia. Chief Complaint: [] Interval history: 12/12-patient admitted with complicated UTI/pneumonia and sepsiswith evidence of end organ dysfunction. Elevated creatinine 1.7. Bandemia 20%. Critically ill. However DNR and hence admitted to medical floor. [place] score 16. Family aware of poor prognosis. 12/13-patient clinically responding to antibiotic coveragefor nosocomial pathogens.restart home meds. No overnight shortness of breath chest pain confusion and weakness. Daughter at bedside. Discussed treatment plan and possible transfer to SNF if patient continues to improve over the next 48-72 hours. No active concerns 12/14- gram-positive bacteremia.await sensitivities. On broad antibiotic coverage. Likely source pneumonia. Surveillance cultures pending. Patient status quo with no significant change in previous day. persistent bandemia and leukopenia. patient's daughter extremely concerned about deteriorating status however clearly understands high risk mortality given bacteremia and severe sepsis with hypoxic respiratory failure. overnight intermittently confused and short of breath. Intermittent apneic spells. - Constitutional Vitals: Vital Signs Temp Pulse Resp BP Pulse Ox 97.7 F 71 16 108/72 95 12/14/17 07:56 12/14/17 09:15 12/14/17 09:15 12/14/17 07:56 12/14/17 09:15 Period Temp Pulse Resp BP Sys/Zeng Pulse Ox Last 24 Hr 97.7 F-100.8 F 66-76 10-20 107-136/55-75 95-98 Intake and Output 12/13/17 12/14/17 12/14/17 21:59 05:59 13:59 Intake Total 1800 / 1800 300 / 300 Output Total 850 / 850 825 / 825 Balance 950 / 950 -525 / -525 Weight 142 lb Intake & Output: Intake & Output 12/13/17 12/14/17 12/14/17 21:59 05:59 13:59 Intake Total 1800 / 1800 300 / 300 Output Total 850 / 850 825 / 825 Balance 950 / 950 -525 / -525 Weight 142 lb Intake: IV 1050 / 1050 100 / 100 Lactated Ringers 1,000 ml @ 100 1000 / 1000 mls/hr IV .Q10H [facility] Rx#: [id number] Zosyn 2.25 gm In Dextrose 5% in 50 / 50 100 / 100 Water 50 ml @ 100 mls/hr IV Q6H [facility] Rx#:[id number] Oral 750 / 750 200 / 200 Output: Urine Catheter Amount 850 / 850 825 / 825 Other: Meal Dinner Percent of Meal Consumed 10% Feeding Ability Assist with Tray Set Up General appearance: disheveled, mild distress Exam: short of breath and anxious Minimally labored breathing Nondistended abdomen Fatigue Medical - PN: Obj Da - Labs CBC & Chem 7: 12/14/17 05:48 12/14/17 05:48 Labs: Abnormal Lab Results 12/14/17 12/14/17 12/13/17 05:48 05:48 05:15 WBC 4.4 L RBC 2.80 L Hgb 8.6 L Hct 25.8 L POC Hct Band Neutrophils % 20 H Lymphocytes % 14 L VBG Lactic Acid Sodium 130 L Carbon Dioxide 21 L 19 L POC Total CO2 POC BUN BUN 35 H POC Creatinine Glucose 158 H POC Glucose Uric Acid 2.1 L Calcium 7.7 L 7.9 L Phosphorus 2.1 L Magnesium 1.5 L Total Protein 4.7 L 4.8 L Albumin 2.4 L 2.7 L Globulin 2.1 L Triglycerides 257 H 192 H Urine Protein Urine Occult Blood Urine RBC Urine WBC Amorphous Crystals 12/13/17 12/12/17 12/12/17 05:15 11:37 10:29 WBC 3.8 L RBC 2.96 L Hgb 9.1 L Hct 27.2 L POC Hct Band Neutrophils % 23 H Lymphocytes % 7 L VBG Lactic Acid 2.5 H Sodium Carbon Dioxide POC Total CO2 POC BUN BUN POC Creatinine Glucose POC Glucose Uric Acid Calcium Phosphorus Magnesium Total Protein Albumin Globulin Triglycerides Urine Protein 100 A Urine Occult Blood >=1.0 A Urine RBC > 182 H Urine WBC 22 H Amorphous Crystals Few A 12/12/17 12/12/17 10:29 10:29 WBC RBC 3.21 L Hgb 9.9 L Hct 29.3 L POC Hct 28.0 L Band Neutrophils % 20 H Lymphocytes % 13 L VBG Lactic Acid Sodium Carbon Dioxide POC Total CO2 19 L POC BUN 36 H BUN POC Creatinine 1.7 H Glucose POC Glucose 142 H Uric Acid Calcium Phosphorus Magnesium Total Protein Albumin Globulin Triglycerides Urine Protein Urine Occult Blood Urine RBC Urine WBC Amorphous Crystals Meds: Medications Acetaminophen (Tylenol) 650 mg PO Q4-6HP PRN PRN Reason: PAIN/FEVER > 101 Hydrocodone Bitart/Acetaminophen ([place] 7.5/325mg) 1 tab PO Q6HP PRN PRN Reason: Pain Albuterol/Ipratropium (Duoneb) 3 ml NEB Q4HP PRN PRN Reason: Shortness Of Breath Aspirin (Aspirin) 81 mg PO DAILY [facility] Last Admin: 12/14/17 10:35 Dose: 81 mg Budesonide (Pulmicort) 0.5 mg NEB Q12 [facility] Last Admin: 12/14/17 08:59 Dose: 0.5 mg Cyanocobalamin (Vitamin B-12) 1,000 mcg PO BID [facility] Stop: 12/17/17 09:01 Last Admin: 12/14/17 11:06 Dose: 1,000 mcg Dabigatran (Pradaxa) 150 mg PO BID [facility] Last Admin: 12/14/17 10:35 Dose: 150 mg Docusate Sodium (Colace) 100 mg PO BID [facility] Last Admin: 12/14/17 10:35 Dose: 100 mg Heparin Sodium (Porcine) (Heparin Flush) 2 ml IV Q12 [facility] Levofloxacin (Levaquin) 750 mg in 150 mls @ 100 mls/hr IV Q48H [facility] Last Admin: 12/14/17 10:52 Dose: 100 mls/hr Magnesium Sulfate (Magnesium Sulfate) 2 gm in 50 mls @ 50 mls/hr IV UD PRN PRN Reason: MG = or < 1.7 Acetaminophen (Ofirmev) 1,000 mg in 100 mls @ 200 mls/hr IV Q6HP PRN PRN Reason: PAIN/FEVER > 101 Last Infusion: 12/13/17 00:55 Dose: Infused Piperacillin Sod/Tazobactam (Sod 2.25 gm/ Dextrose) 50 mls @ 100 mls/hr IV Q6H [facility] Last Infusion: 12/14/17 05:55 Dose: Infused Vancomycin HCl 1,000 mg/ (Sodium Chloride) 250 mls @ 250 mls/hr IV Q24H [facility] Stop: 12/14/17 12:00 Last Infusion: 12/13/17 11:24 Dose: Infused Vancomycin HCl 1,000 mg/ (Sodium Chloride) 250 mls @ 250 mls/hr IV Q12H [facility] Insulin Glargine (Lantus) 25 unit SQ DAILY [facility] Last Admin: 12/14/17 10:36 Dose: 25 unit Iron Carb/Multivit/[place]/Folic Acid (Multivitamin W/Minerals) 1 tab PO DAILY [facility] Last Admin: 12/14/17 10:35 Dose: 1 tab Levetiracetam (Keppra) 500 mg PO BID [facility] Last Admin: 12/14/17 10:35 Dose: 500 mg Levothyroxine Sodium (Synthroid) 200 mcg PO ACB [facility] Last Admin: 12/14/17 07:43 Dose: 200 mcg Losartan Potassium (Cozaar) 25 mg PO DAILY [facility] Last Admin: 12/14/17 10:36 Dose: 25 mg Metformin HCl (Glucophage) 500 mg PO BIDCC [facility] Last Admin: 12/14/17 07:44 Dose: 500 mg Omeprazole (Prilosec) 20 mg PO [facility] Last Admin: 12/13/17 20:51 Dose: 20 mg Ondansetron HCl (Zofran) 4 mg IV Q4-6HP PRN PRN Reason: Nausea And Vomiting Potassium Chloride (Klor-Con) 40 meq PO DAILYP PRN PRN Reason: K+ < 3.5 Senna/Docusate Sodium (Senna Plus Tablet) 1 tab PO [facility] Last Admin: 12/13/17 21:03 Dose: Not Given Sertraline HCl (Zoloft) 25 mg PO DAILY [facility] Last Admin: 12/14/17 11:06 Dose: 25 mg Sodium Chloride (Saline Flush) 10 ml IV Q8 [facility] Last Admin: 12/14/17 05:20 Dose: 10 ml Sodium Chloride (Saline Flush) 10 ml IV UD PRN PRN Reason: FLUSH Sodium Chloride (Saline Flush) 10 ml IV Q12 [facility] Tamsulosin HCl (Flomax) 0.4 mg PO [facility] Last Admin: 12/13/17 20:52 Dose: 0.4 mg Thiamine HCl (Vitamin B1) 100 mg PO DAILY [facility] Stop: 12/15/17 09:01 Last Admin: 12/14/17 11:07 Dose: 100 mg Topiramate (Topamax) 50 mg PO BID [facility] Last Admin: 12/14/17 11:07 Dose: 50 mg Trazodone HCl (Desyrel) 50 mg PO HSP PRN PRN Reason: Insomnia Vancomycin HCl (Vancomycin Per Pharmacy) 1 order IV UD [facility] Medical - PN: A/P - Time Spent With Patient Total time spent is greater than 50% in coordination of care (as documented) at patient's floor/unit and/or counseling patient: 25 - 35 minutes (1) Nosocomial pneumonia Status: Acute Assessment and plan: * Gram-positive bacteremia-on vancomycin. Surveillance cultures ordered. Likely source pneumonia * Bilateral lower lobe nosocomial pneumonia-continue broad antibiotic coverage. clinically unchanged * Acute change in mental status secondary to pneumonia and Severe sepsis and organ dysfunction.continue close monitoring * Severe sepsis with end organ dysfunction, persistent Bandemia 23%. * Complicated UTI on antibiotic coverage. 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
[2017-12-14] MEDS: VANCOMYCIN 1,000 MG in 0.9 % SODIUM CHLORIDE 250 ML IV SCH (12:22)
[2017-12-14] MEDS: MAGNESIUM SULFATE 2 GM/50 ML BAG IV PRN (13:50)
--- NOTE | 2017-12-14 18:58 | XRay Report ---
INDICATION: PICC line placement TECHNIQUE: AP chest x-ray,portable COMPARISON: Previous chest x-rays dated 12/14/2017 and 12/12/2017 FINDINGS: Left-sided PICC line with its tip in the superior vena cava. PICC line is difficult to visualize due to overlying pacemaker leads but the tip is in good position. There are bilateral pulmonary parenchymal densities consistent with atelectasis. Heart size is enlarged and pulmonary vascularity is prominent. IMPRESSION: Left-sided PICC line with its tip in the superior vena cava Interpreted and Authenticated by: Kolton Kidd 12/14/17
[2017-12-14] MEDS: TAMSULOSIN 0.4 MG CAPSULE PO SCH (19:57)
[2017-12-14] MEDS: SENNOSIDES/DOCUSATE SODIUM 1 TAB TABLET PO SCH (19:57)
[2017-12-14] MEDS: OMEPRAZOLE 20 MG CAPSULE PO SCH (19:57)
[2017-12-14] MEDS ORDERED: VANCOMYCIN 1,000 MG in 0.9 % SODIUM CHLORIDE 250 ML IV SCH (22:00)
[2017-12-15] MEDS: PIPERACILLIN SODIUM/TAZOBACTAM 2.25 GM in DEXTROSE 5% IN WATER 50 ML IV SCH (05:27)
[2017-12-15] MEDS: 0.9 % SODIUM CHLORIDE 10 ML SYRINGE IV SCH ×5 (05:27→22:30)
[2017-12-15 06:11] LABS: Mean Cell Volume 91.9 fL (80.0-100.0); Mean Corpuscular HGB Conc 33.4 g/dL (31.0-36.0); Mean Corpuscular Hemoglobin 30.7 pg (26.0-34.0); Platelet Count 169 K/mcL (140-440); RBC 2.94 M/mcL (4.50-5.90); Red Cell Distribution Width 12.6 % (11.5-14.5)
[2017-12-15 06:30] LABS: ALT/SGPT 21 U/l (0-40); Albumin 2.6 gm/dL (3.2-5.2); Albumin/Globulin Ratio 1.1 (1.0-2.3); Alkaline Phosphatase 84 U/L (39-117); Bilirubin,Direct < 0.2 mg/dL (0.0-0.3); Blood Urea Nitrogen 18 mg/dl (8-23); Gamma Glutamyl Transpeptidase 31 U/L (8-61); Magnesium 1.7 mg/dL (1.6-2.5); Uric Acid 1.9 mg/dL (2.5-8.0)
[2017-12-15 06:54] LABS: Band Neutrophils % 23 % (0-10); Eosinophils % (Manual) 8 % (0-7); Lymphocytes % 15 % (15-49); Monocytes % (Manual) 8 % (1-12); Platelet Estimate NORMAL (NORMAL); RBC Morphology ABNORM (NORMAL); Segmented Neutrophils % 46 % (38-78); Toxic Granulation 1+ (NONE SEEN)
[2017-12-15] MEDS: LEVOTHYROXINE 100 MCG TABLET PO SCH (08:05)
--- NOTE | 2017-12-15 09:06 | Internal Med Progress Note ---
Medical - PN: Subj Patient information: Note initiated : 12/15/17 at 9:06 am Service Date, if different from initiated Date: [] Patient: Darlene Douglas 82 y/o M admitted on 12/12/17 for UTI, Decreased LOC/ Bilateral Lower Lobe Pneumonia. Chief Complaint: [] Interval history: 12/12-patient admitted with complicated UTI/pneumonia and sepsiswith evidence of end organ dysfunction. Elevated creatinine 1.7. Bandemia 20%. Critically ill. However DNR and hence admitted to medical floor. [place] score 16. Family aware of poor prognosis. 12/13-patient clinically responding to antibiotic coveragefor nosocomial pathogens.restart home meds. No overnight shortness of breath chest pain confusion and weakness. Daughter at bedside. Discussed treatment plan and possible transfer to SNF if patient continues to improve over the next 48-72 hours. No active concerns 12/14- gram-positive bacteremia.await sensitivities. On broad antibiotic coverage. Likely source pneumonia. Surveillance cultures pending. Patient status quo with no significant change in previous day. persistent bandemia and leukopenia. patient's daughter extremely concerned about deteriorating status however clearly understands high risk mortality given bacteremia and severe sepsis with hypoxic respiratory failure. overnight intermittently confused and short of breath. Intermittent apneic spells. 12/15-no overnight events. No significant improvement since previous day. Daughter at bedside. Ongoing antibiotic coverage. Afebrile. Surveillance cultures negative so far. Enterococci in urine. blood cultures coag-negative staph. De-escalate antibiotics to ampicillin . Anticipate discharge to SNF on Monday. Continue physical therapy - Constitutional Vitals: Vital Signs Temp Pulse Resp BP Pulse Ox 98.6 F 69 16 128/72 95 12/15/17 06:37 12/15/17 04:00 12/15/17 06:37 12/15/17 06:37 12/15/17 06:37 Period Temp Pulse Resp BP Sys/Zeng Pulse Ox Last 24 Hr 97.6 F-98.6 F 69-73 10-20 96-128/55-82 94-100 Intake and Output 12/14/17 12/15/17 12/15/17 21:59 05:59 13:59 Intake Total 410 / 410 400 / 400 Output Total 1800 / 1800 575 / 575 Balance -1390 / -1390 -175 / -175 Weight 142 lb Intake & Output: Intake & Output 12/14/17 12/15/17 12/15/17 21:59 05:59 13:59 Intake Total 410 / 410 400 / 400 Output Total 1800 / 1800 575 / 575 Balance -1390 / -1390 -175 / -175 Weight 142 lb Intake: IV 50 / 50 300 / 300 Zosyn 2.25 gm In Dextrose 5% in 50 / 50 50 / 50 Water 50 ml @ 100 mls/hr IV Q6H [facility] Rx#:[id number] Vancomycin 1,000 mg In Sodium 250 / 250 Chloride 0.9% 250 ml @ 250 mls/ hr IV Q12H [facility] Rx#:[id number] Oral 360 / 360 100 / 100 Output: Urine Catheter Amount 1800 / 1800 575 / 575 Other: Meal Dinner Percent of Meal Consumed 50% Feeding Ability Total Assistance Medical - PN: Obj Da - Labs CBC & Chem 7: 12/15/17 04:10 12/15/17 04:10 Labs: Abnormal Lab Results 12/15/17 12/15/17 12/14/17 04:10 04:10 05:48 WBC 4.2 L RBC 2.94 L Hgb 9.0 L Hct 27.0 L POC Hct Band Neutrophils % 23 H Lymphocytes % Eosinophils % (Manual) 8 H WBC Morphology Abnorm A Toxic Granulation 1+ A RBC Morphology Abnorm A RBC Fragments Occ A VBG Lactic Acid Sodium 130 L Carbon Dioxide 21 L POC Total CO2 POC BUN BUN POC Creatinine Glucose 201 H 158 H POC Glucose Uric Acid 1.9 L 2.1 L Calcium 7.8 L 7.7 L Phosphorus 2.0 L 2.1 L Magnesium 1.5 L Total Protein 4.9 L 4.7 L Albumin 2.6 L 2.4 L Globulin Triglycerides 288 H 257 H Urine Protein Urine Occult Blood Urine RBC Urine WBC Amorphous Crystals 12/14/17 12/13/17 12/13/17 05:48 05:15 05:15 WBC 4.4 L 3.8 L RBC 2.80 L 2.96 L Hgb 8.6 L 9.1 L Hct 25.8 L 27.2 L POC Hct Band Neutrophils % 20 H 23 H Lymphocytes % 14 L 7 L Eosinophils % (Manual) WBC Morphology Toxic Granulation RBC Morphology RBC Fragments VBG Lactic Acid Sodium Carbon Dioxide 19 L POC Total CO2 POC BUN BUN 35 H POC Creatinine Glucose POC Glucose Uric Acid Calcium 7.9 L Phosphorus Magnesium Total Protein 4.8 L Albumin 2.7 L Globulin 2.1 L Triglycerides 192 H Urine Protein Urine Occult Blood Urine RBC Urine WBC Amorphous Crystals 12/12/17 12/12/17 12/12/17 11:37 10:29 10:29 WBC RBC 3.21 L Hgb 9.9 L Hct 29.3 L POC Hct Band Neutrophils % 20 H Lymphocytes % 13 L Eosinophils % (Manual) WBC Morphology Toxic Granulation RBC Morphology RBC Fragments VBG Lactic Acid 2.5 H Sodium Carbon Dioxide POC Total CO2 POC BUN BUN POC Creatinine Glucose POC Glucose Uric Acid Calcium Phosphorus Magnesium Total Protein Albumin Globulin Triglycerides Urine Protein 100 A Urine Occult Blood >=1.0 A Urine RBC > 182 H Urine WBC 22 H Amorphous Crystals Few A 12/12/17 10:29 WBC RBC Hgb Hct POC Hct 28.0 L Band Neutrophils % Lymphocytes % Eosinophils % (Manual) WBC Morphology Toxic Granulation RBC Morphology RBC Fragments VBG Lactic Acid Sodium Carbon Dioxide POC Total CO2 19 L POC BUN 36 H BUN POC Creatinine 1.7 H Glucose POC Glucose 142 H Uric Acid Calcium Phosphorus Magnesium Total Protein Albumin Globulin Triglycerides Urine Protein Urine Occult Blood Urine RBC Urine WBC Amorphous Crystals Meds: Medications Acetaminophen (Tylenol) 650 mg PO Q4-6HP PRN PRN Reason: PAIN/FEVER > 101 Hydrocodone Bitart/Acetaminophen ([place] 7.5/325mg) 1 tab PO Q6HP PRN PRN Reason: Pain Albuterol/Ipratropium (Duoneb) 3 ml NEB Q4HP PRN PRN Reason: Shortness Of Breath Aspirin (Aspirin) 81 mg PO DAILY [facility] Last Admin: 12/14/17 10:35 Dose: 81 mg Budesonide (Pulmicort) 0.5 mg NEB Q12 [facility] Last Admin: 12/14/17 20:21 Dose: 0.5 mg Cyanocobalamin (Vitamin B-12) 1,000 mcg PO BID [facility] Stop: 12/17/17 09:01 Last Admin: 12/14/17 19:57 Dose: 1,000 mcg Dabigatran (Pradaxa) 150 mg PO BID [facility] Last Admin: 12/14/17 19:57 Dose: 150 mg Docusate Sodium (Colace) 100 mg PO BID [facility] Last Admin: 12/14/17 19:57 Dose: 100 mg Heparin Sodium (Porcine) (Heparin Flush) 2 ml IV Q12 [facility] Last Admin: 12/14/17 19:57 Dose: 2 ml Levofloxacin (Levaquin) 750 mg in 150 mls @ 100 mls/hr IV Q48H [facility] Last Infusion: 12/14/17 12:22 Dose: Infused Magnesium Sulfate (Magnesium Sulfate) 2 gm in 50 mls @ 50 mls/hr IV UD PRN PRN Reason: MG = or < 1.7 Last Admin: 12/14/17 13:50 Dose: 50 mls/hr Acetaminophen (Ofirmev) 1,000 mg in 100 mls @ 200 mls/hr IV Q6HP PRN PRN Reason: PAIN/FEVER > 101 Last Infusion: 12/13/17 00:55 Dose: Infused Piperacillin Sod/Tazobactam (Sod 2.25 gm/ Dextrose) 50 mls @ 100 mls/hr IV Q6H [facility] Last Admin: 12/15/17 05:27 Dose: 100 mls/hr Vancomycin HCl 1,000 mg/ (Sodium Chloride) 250 mls @ 250 mls/hr IV Q12H [facility] Last Infusion: 12/14/17 23:40 Dose: Infused Insulin Glargine (Lantus) 25 unit SQ DAILY [facility] Last Admin: 12/14/17 10:36 Dose: 25 unit Iron Carb/Multivit/[place]/Folic Acid (Multivitamin W/Minerals) 1 tab PO DAILY [facility] Last Admin: 12/14/17 10:35 Dose: 1 tab Levetiracetam (Keppra) 500 mg PO BID [facility] Last Admin: 12/14/17 19:55 Dose: 500 mg Levothyroxine Sodium (Synthroid) 200 mcg PO ACB [facility] Last Admin: 12/15/17 08:05 Dose: 200 mcg Losartan Potassium (Cozaar) 25 mg PO DAILY [facility] Last Admin: 12/14/17 10:36 Dose: 25 mg Metformin HCl (Glucophage) 500 mg PO BIDCC [facility] Last Admin: 12/14/17 20:01 Dose: 500 mg Omeprazole (Prilosec) 20 mg PO HS [facility] Last Admin: 12/14/17 19:57 Dose: 20 mg Ondansetron HCl (Zofran) 4 mg IV Q4-6HP PRN PRN Reason: Nausea And Vomiting Potassium Chloride (Klor-Con) 40 meq PO DAILYP PRN PRN Reason: K+ < 3.5 Senna/Docusate Sodium (Senna Plus Tablet) 1 tab PO HS [facility] Last Admin: 12/14/17 19:57 Dose: 1 tab Sertraline HCl (Zoloft) 25 mg PO DAILY [facility] Last Admin: 12/14/17 11:06 Dose: 25 mg Sodium Chloride (Saline Flush) 10 ml IV Q8 [facility] Last Admin: 12/15/17 05:27 Dose: 10 ml Sodium Chloride (Saline Flush) 10 ml IV UD PRN PRN Reason: FLUSH Sodium Chloride (Saline Flush) 10 ml IV Q12 [facility] Last Admin: 12/14/17 19:58 Dose: 10 ml Tamsulosin HCl (Flomax) 0.4 mg PO [facility] Last Admin: 12/14/17 19:57 Dose: 0.4 mg Topiramate (Topamax) 50 mg PO BID [facility] Last Admin: 12/14/17 19:56 Dose: 50 mg Trazodone HCl (Desyrel) 50 mg PO HSP PRN PRN Reason: Insomnia Vancomycin HCl (Vancomycin Per Pharmacy) 1 order IV [facility] Medical - PN: A/P - Time Spent With Patient Total time spent is greater than 50% in coordination of care (as documented) at patient's floor/unit and/or counseling patient: 25 - 35 minutes (1) Nosocomial pneumonia Status: Acute Assessment and plan: * Bilateral lower lobe pneumonia. de-escalate antibiotic to Levaquin * Complicated enterococcal UTI -start ampicillin * Acute change in mental status secondary to sepsis end organ dysfunction. * Severe sepsis with end organ dysfunction, persistent Bandemia 23%. 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
[2017-12-15] MEDS: THIAMINE 100 MG TABLET PO SCH (09:24)
[2017-12-15] MEDS: MULTIVIT,THER IRON,CA,FA & MIN 1 TABLET PO SCH (09:24)
[2017-12-15] MEDS: levETIRAcetam 500 MG TABLET PO SCH ×2 (09:24→19:15)
[2017-12-15] MEDS: ASPIRIN 81 MG TAB.CHEW PO SCH (09:24)
[2017-12-15] MEDS: SERTRALINE 50 MG TABLET PO SCH (09:24)
[2017-12-15] MEDS: LOSARTAN 25 MG TABLET PO SCH (09:24)
[2017-12-15] MEDS: DOCUSATE SODIUM 100 MG CAPSULE PO SCH ×2 (09:24→19:19)
[2017-12-15] MEDS: metFORMIN 500 MG TABLET PO SCH ×2 (09:24→17:29)
[2017-12-15] MEDS: CYANOCOBALAMIN (VITAMIN B-12) 500 MCG TABLET PO SCH ×2 (09:24→19:18)
[2017-12-15] MEDS: DABIGATRAN ETEXILATE MESYLATE 75 MG CAPSULE PO SCH ×2 (09:24→19:15)
[2017-12-15] MEDS: INSULIN GLARGINE, HUMAN 1 UNIT/0.01 ML SQ SCH (09:25)
[2017-12-15] MEDS: TOPIRAMATE 25 MG TABLET PO SCH ×2 (09:25→19:16)
[2017-12-15] MEDS: BUDESONIDE 0.5 MG/2 ML AMPUL.NEB NEB SCH ×2 (09:50→20:07)
[2017-12-15] MEDS: AMPICILLIN SODIUM 1 GM in 0.9 % SODIUM CHLORIDE 50 ML IV SCH ×3 (10:23→17:29)
[2017-12-15] MEDS: LEVOFLOXACIN 500 MG/100 ML BAG IV SCH (11:35)
[2017-12-15] MEDS ORDERED: AMOXICILLIN/POTASSIUM CLAV 875 MG TABLET PO SCH (17:30)
[2017-12-15] MEDS ORDERED: MAGNESIUM SULFATE 8.12 MEQ/2 ML VIAL ONE (18:27)
[2017-12-15] MEDS: MAGNESIUM SULFATE 2 GM/50 ML BAG IV PRN (18:46)
[2017-12-15] MEDS: LACTATED RINGERS 1,000 ML IV SCH (19:09)
[2017-12-15] MEDS: OMEPRAZOLE 20 MG CAPSULE PO SCH (19:17)
[2017-12-15] MEDS: TAMSULOSIN 0.4 MG CAPSULE PO SCH (19:17)
[2017-12-15] MEDS: SENNOSIDES/DOCUSATE SODIUM 1 TAB TABLET PO SCH (19:19)
[2017-12-16] MEDS: AMPICILLIN SODIUM 1 GM in 0.9 % SODIUM CHLORIDE 50 ML IV SCH ×2 (00:10→06:13)
[2017-12-16 05:34] LABS: Mean Cell Volume 91.8 fL (80.0-100.0); Mean Corpuscular HGB Conc 33.6 g/dL (31.0-36.0); Mean Corpuscular Hemoglobin 30.9 pg (26.0-34.0); Platelet Count 194 K/mcL (140-440); RBC 2.95 M/mcL (4.50-5.90)
[2017-12-16 06:13] LABS: ALT/SGPT 18 U/l (0-40); Albumin 2.5 gm/dL (3.2-5.2); Alkaline Phosphatase 83 U/L (39-117); Bilirubin,Direct < 0.2 mg/dL (0.0-0.3); Blood Urea Nitrogen 16 mg/dl (8-23); Gamma Glutamyl Transpeptidase 28 U/L (8-61); Magnesium 1.8 mg/dL (1.6-2.5); Uric Acid 2.6 mg/dL (2.5-8.0)
[2017-12-16] MEDS: 0.9 % SODIUM CHLORIDE 10 ML SYRINGE IV SCH ×5 (06:13→21:05)
[2017-12-16 07:13] LABS: Band Neutrophils % 1 % (0-10); Eosinophils % (Manual) 2 % (0-7); Lymphocytes % 21 % (15-49); Monocytes % (Manual) 11 % (1-12); Platelet Estimate NORMAL (NORMAL); RBC Morphology NORMAL (NORMAL); Segmented Neutrophils % 65 % (38-78)
[2017-12-16] MEDS: metFORMIN 500 MG TABLET PO SCH ×2 (07:30→16:55)
[2017-12-16] MEDS: LEVOTHYROXINE 100 MCG TABLET PO SCH (07:30)
[2017-12-16] MEDS ORDERED: DEXTROSE 31 GM ORAL.SUSP PO PRN (08:01)
[2017-12-16] MEDS ORDERED: DEXTROSE 50% 50 ML VIAL IV PRN (08:01)
[2017-12-16] MEDS: LEVOFLOXACIN 500 MG/100 ML BAG IV SCH (08:26)
[2017-12-16] MEDS: DABIGATRAN ETEXILATE MESYLATE 75 MG CAPSULE PO SCH ×2 (08:31→21:03)
[2017-12-16] MEDS: SERTRALINE 50 MG TABLET PO SCH (08:31)
[2017-12-16] MEDS: levETIRAcetam 500 MG TABLET PO SCH ×2 (08:31→21:03)
[2017-12-16] MEDS: MULTIVIT,THER IRON,CA,FA & MIN 1 TABLET PO SCH (08:32)
[2017-12-16] MEDS: CYANOCOBALAMIN (VITAMIN B-12) 500 MCG TABLET PO SCH ×2 (08:32→21:05)
[2017-12-16] MEDS: ASPIRIN 81 MG TAB.CHEW PO SCH (08:32)
[2017-12-16] MEDS: LOSARTAN 25 MG TABLET PO SCH (08:32)
[2017-12-16] MEDS: DOCUSATE SODIUM 100 MG CAPSULE PO SCH ×3 (08:32→21:03)
[2017-12-16] MEDS: INSULIN GLARGINE, HUMAN 1 UNIT/0.01 ML SQ SCH (08:34)
[2017-12-16] MEDS: TOPIRAMATE 25 MG TABLET PO SCH ×2 (08:44→21:04)
[2017-12-16] MEDS: BUDESONIDE 0.5 MG/2 ML AMPUL.NEB NEB SCH ×2 (10:09→21:42)
--- NOTE | 2017-12-16 11:31 | Internal Med Progress Note ---
Medical - PN: Subj Patient information: Note initiated : 12/16/17 at 11:26 am Service Date, if different from initiated Date: [] Patient: Darlene Douglas 82 y/o M admitted on 12/12/17 for UTI, Decreased LOC/ Bilateral Lower Lobe Pneumonia. Chief Complaint: [] Interval history: 12/12-patient admitted with complicated UTI/pneumonia and sepsiswith evidence of end organ dysfunction. Elevated creatinine 1.7. Bandemia 20%. Critically ill. However DNR and hence admitted to medical floor. [place] score 16. Family aware of poor prognosis. 12/13-patient clinically responding to antibiotic coveragefor nosocomial pathogens.restart home meds. No overnight shortness of breath chest pain confusion and weakness. Daughter at bedside. Discussed treatment plan and possible transfer to SNF if patient continues to improve over the next 48-72 hours. No active concerns 12/14- gram-positive bacteremia.await sensitivities. On broad antibiotic coverage. Likely source pneumonia. Surveillance cultures pending. Patient status quo with no significant change in previous day. persistent bandemia and leukopenia. patient's daughter extremely concerned about deteriorating status however clearly understands high risk mortality given bacteremia and severe sepsis with hypoxic respiratory failure. overnight intermittently confused and short of breath. Intermittent apneic spells. 12/15-no overnight events. No significant improvement since previous day. Daughter at bedside. Ongoing antibiotic coverage. Afebrile. Surveillance cultures negative so far. Enterococci in urine. blood cultures coag-negative staph. De-escalate antibiotics to ampicillin . Anticipate discharge to SNF on Monday. Continue physical therapy 12/16: Patient seen examined, no acute overnight events, was sleeping on my eval , did not answer my questions, daugther was at bedside, talked at length regarding patients overall c ondition and goals of care. It seems familiy does wish for comfort palliative care, so does the patient , but not entirely sure how this will proceed. patient has had gradual decline since march 13. Pertinent ROS: unable to assess today. - Constitutional Vitals: Vital Signs Temp Pulse Resp BP Pulse Ox 97.4 F 70 16 131/70 96 12/16/17 11:26 12/16/17 10:11 12/16/17 11:26 12/16/17 11:26 12/16/17 11:26 Period Temp Pulse Resp BP Sys/Zeng Pulse Ox Last 24 Hr 97 F-98.6 F 58-72 12-18 109-136/64-77 95-98 Intake and Output 12/15/17 12/16/17 12/16/17 21:59 05:59 13:59 Intake Total 600 / 600 150 / 150 150 / 150 Output Total 550 / 550 700 / 700 Balance 50 / 50 -550 / -550 150 / 150 Weight 140 lb 140 lb Patient Weight 12/17/17 05:59 Weight 140 lb Intake & Output: Intake & Output 12/15/17 12/16/17 12/16/17 21:59 05:59 13:59 Intake Total 600 / 600 150 / 150 150 / 150 Output Total 550 / 550 700 / 700 Balance 50 / 50 -550 / -550 150 / 150 Weight 140 lb 140 lb Intake: IV 100 / 100 50 / 50 150 / 150 Ampicillin 1 gm In Sodium 100 / 100 50 / 50 50 / 50 Chloride 0.9% 50 ml @ 100 mls/ hr IV Q6H [facility] Rx#:[id number] Oral 500 / 500 100 / 100 Output: Urine Catheter Amount 550 / 550 700 / 700 Other: Meal Dinner Percent of Meal Consumed 25% Feeding Ability Total Assistance Exam: Constitutional; Afebrile, sleeping, (as per daughter usually sleeps most of the time) Eyes- No icterus, No periorbital swelling Ears- Ext ear normal, hearing normal to conversation. Neck- Midline trachea, supple Respiratory system: Air Entry equal on both sides, No crackles or wheezing, no rhonchi. CVS- Rate rhythm regular, S1,S2 heard, no gallop, no rub. Abdomen- Soft nontender abdomen, no organomegaly, no tenderness, no guarding or rigidity, Medical - PN: Obj Da - Labs CBC & Chem 7: 12/16/17 04:30 12/16/17 04:30 Labs: Abnormal Lab Results 12/16/17 12/16/17 12/15/17 04:30 04:30 04:10 WBC RBC 2.95 L Hgb 9.1 L Hct 27.1 L Band Neutrophils % Lymphocytes % Eosinophils % (Manual) WBC Morphology Toxic Granulation RBC Morphology RBC Fragments Sodium Carbon Dioxide Glucose 197 H 201 H Uric Acid 1.9 L Calcium 7.8 L 7.8 L Phosphorus 1.9 L 2.0 L Magnesium Total Protein 4.9 L 4.9 L Albumin 2.5 L 2.6 L Triglycerides 302 H 288 H 12/15/17 12/14/17 12/14/17 04:10 05:48 05:48 WBC 4.2 L 4.4 L RBC 2.94 L 2.80 L Hgb 9.0 L 8.6 L Hct 27.0 L 25.8 L Band Neutrophils % 23 H 20 H Lymphocytes % 14 L Eosinophils % (Manual) 8 H WBC Morphology Abnorm A Toxic Granulation 1+ A RBC Morphology Abnorm A RBC Fragments Occ A Sodium 130 L Carbon Dioxide 21 L Glucose 158 H Uric Acid 2.1 L Calcium 7.7 L Phosphorus 2.1 L Magnesium 1.5 L Total Protein 4.7 L Albumin 2.4 L Triglycerides 257 H Meds: Medications Acetaminophen (Tylenol) 650 mg PO Q4-6HP PRN PRN Reason: PAIN/FEVER > 101 Hydrocodone Bitart/Acetaminophen ([place] 7.5/325mg) 1 tab PO Q6HP PRN PRN Reason: Pain Albuterol/Ipratropium (Duoneb) 3 ml NEB Q4HP PRN PRN Reason: Shortness Of Breath Aspirin (Aspirin) 81 mg PO DAILY [facility] Last Admin: 12/16/17 08:32 Dose: 81 mg Budesonide (Pulmicort) 0.5 mg NEB Q12 [facility] Last Admin: 12/16/17 10:09 Dose: 0.5 mg Cyanocobalamin (Vitamin B-12) 1,000 mcg PO BID [facility] Stop: 12/17/17 09:01 Last Admin: 12/16/17 08:32 Dose: 1,000 mcg Dabigatran (Pradaxa) 150 mg PO BID [facility] Last Admin: 12/16/17 08:31 Dose: 150 mg Dextrose (Dextrose 50%) 0 ml IV UD PRN PRN Reason: Hypoglycemia Diagnostic Test (Pha) (Accu-Chek) 1 each FS ACHS [facility] Docusate Sodium (Colace) 100 mg PO BID [facility] Last Admin: 12/16/17 08:37 Dose: Not Given Glucose (Insta-Glucose) 15 gm PO PRN PRN PRN Reason: Hypoglycemia Heparin Sodium (Porcine) (Heparin Flush) 2 ml IV Q12 [facility] Last Admin: 12/16/17 09:59 Dose: 2 ml Magnesium Sulfate (Magnesium Sulfate) 2 gm in 50 mls @ 50 mls/hr IV UD PRN PRN Reason: MG = or < 1.7 Last Infusion: 12/14/17 14:50 Dose: Infused Acetaminophen (Ofirmev) 1,000 mg in 100 mls @ 200 mls/hr IV Q6HP PRN PRN Reason: PAIN/FEVER > 101 Last Infusion: 12/13/17 00:55 Dose: Infused Ampicillin Sodium 1 gm/ Sodium (Chloride) 50 mls @ 100 mls/hr IV Q6H [facility] Last Infusion: 12/16/17 06:43 Dose: Infused Lactated Ringer's (Lactated Ringers) 1,000 mls @ 50 mls/hr IV .Q20H [facility] Stop: 12/17/17 10:44 Last Admin: 12/15/17 19:09 Dose: 50 mls/hr Insulin Glargine (Lantus) 25 unit SQ DAILY [facility] Last Admin: 12/16/17 08:34 Dose: 25 unit Insulin Human Lispro (Humalog) 0 unit SQ ACHS [facility] PRN Reason: Protocol Iron Carb/Multivit/Ralls/Folic Acid (Multivitamin W/Minerals) 1 tab PO DAILY [facility] Last Admin: 12/16/17 08:32 Dose: 1 tab Levetiracetam (Keppra) 500 mg PO BID [facility] Last Admin: 12/16/17 08:31 Dose: 500 mg Levothyroxine Sodium (Synthroid) 200 mcg PO ACB [facility] Last Admin: 12/16/17 07:30 Dose: 200 mcg Losartan Potassium (Cozaar) 25 mg PO DAILY [facility] Last Admin: 12/16/17 08:32 Dose: 25 mg Metformin HCl (Glucophage) 500 mg PO BIDCC [facility] Last Admin: 12/16/17 07:30 Dose: 500 mg Omeprazole (Prilosec) 20 mg PO HS [facility] Last Admin: 12/15/17 19:17 Dose: 20 mg Ondansetron HCl (Zofran) 4 mg IV Q4-6HP PRN PRN Reason: Nausea And Vomiting Potassium Chloride (Klor-Con) 40 meq PO DAILYP PRN PRN Reason: K+ < 3.5 Senna/Docusate Sodium (Senna Plus Tablet) 1 tab PO HS [facility] Last Admin: 12/15/17 19:19 Dose: Not Given Sertraline HCl (Zoloft) 25 mg PO DAILY [facility] Last Admin: 12/16/17 08:31 Dose: 25 mg Sodium Chloride (Saline Flush) 10 ml IV Q8 [facility] Last Admin: 12/16/17 06:13 Dose: 10 ml Sodium Chloride (Saline Flush) 10 ml IV UD PRN PRN Reason: FLUSH Sodium Chloride (Saline Flush) 10 ml IV Q12 [facility] Last Admin: 12/16/17 08:35 Dose: 10 ml Tamsulosin HCl (Flomax) 0.4 mg PO HS [facility] Last Admin: 12/15/17 19:17 Dose: 0.4 mg Topiramate (Topamax) 50 mg PO BID [facility] Last Admin: 12/16/17 08:44 Dose: 50 mg Trazodone HCl (Desyrel) 50 mg PO HSP PRN PRN Reason: Insomnia Medical - PN: A/P - Time Spent With Patient Total time spent is greater than 50% in coordination of care (as documented) at patient's floor/unit and/or counseling patient: - Narrative A/P Narrative: A/P Bilateral Pneumonia: Clinically improving, on IV ampicillin, d/c levoflox. Incrase dose of ampicillin to 2 gms q6h Complicated UTI: Secondary to enterococcus, mild left hydro, non obstructive, patient has some bladder thickening, patient has some hemorrhage int he bladder. ON IV ampicillin for same. monitor, pt does not wish for cystoscopy given poor overall healthy Altered mental status: due to infection, clinically improving. as per familyu, sleeping today Anticoagulation chronic: on pradaxa secondary to afib, hr well controlled Anxiety/ Depression: on sertraline 25mg once daily continue same, may need to adjust the dose. DM on insulin and metformin, glucose ok, continue same for now monitor Seizure disorder: no seizures, on keprra / tomapmax continue same h/p penile c ancer/ BPH/ hellen renal stones,/ bladder wall thickening and possible bladder hemorrhage: conservative management, for now, armas in place. Acute Kidney injury: improving Overall debility: WC bound, poor overall functional status and poor appetitie, HTN bp stable, on losartan continue same DVT: on pradaxa Diet Dysphagia diet DNR
[2017-12-16] MEDS ORDERED: SODIUM CHLORIDE 0.9% IV SCH (12:00)
[2017-12-16] MEDS ORDERED: AMPICILLIN SODIUM IV SCH (12:00)
[2017-12-16] MEDS: AMPICILLIN SODIUM 2 GM in 0.9 % SODIUM CHLORIDE 100 ML IV SCH ×3 (12:54→23:46)
[2017-12-16] MEDS: INSULIN LISPRO 1 UNIT/0.01 ML UNIT SQ SCH ×3 (13:51→20:59)
[2017-12-16] MEDS: LACTATED RINGERS 1,000 ML IV SCH (14:41)
[2017-12-16] MEDS: OMEPRAZOLE 20 MG CAPSULE PO SCH (21:03)
[2017-12-16] MEDS: TAMSULOSIN 0.4 MG CAPSULE PO SCH (21:03)
[2017-12-16] MEDS: SENNOSIDES/DOCUSATE SODIUM 1 TAB TABLET PO SCH (21:04)
[2017-12-17] MEDS: AMPICILLIN SODIUM 2 GM in 0.9 % SODIUM CHLORIDE 100 ML IV SCH ×2 (05:15→11:55)
[2017-12-17] MEDS: 0.9 % SODIUM CHLORIDE 10 ML SYRINGE IV SCH (05:16)
[2017-12-17 05:59] LABS: Mean Cell Volume 91.6 fL (80.0-100.0); Mean Corpuscular HGB Conc 33.2 g/dL (31.0-36.0); Mean Corpuscular Hemoglobin 30.4 pg (26.0-34.0); Platelet Count 227 K/mcL (140-440); RBC 2.95 M/mcL (4.50-5.90); Red Cell Distribution Width 12.9 % (11.5-14.5)
[2017-12-17 06:24] LABS: ALT/SGPT 17 U/l (0-40); Albumin 2.6 gm/dL (3.2-5.2); Albumin/Globulin Ratio 1.1 (1.0-2.3); Alkaline Phosphatase 79 U/L (39-117); Bilirubin,Direct < 0.2 mg/dL (0.0-0.3); Blood Urea Nitrogen 12 mg/dl (8-23); Gamma Glutamyl Transpeptidase 29 U/L (8-61); Magnesium 1.7 mg/dL (1.6-2.5); Uric Acid 3.4 mg/dL (2.5-8.0)
[2017-12-17 06:43] LABS: Band Neutrophils % 18 % (0-10); Basophils % (Manual) 1 % (0-2); Eosinophils % (Manual) 1 % (0-7); Lymphocytes % 28 % (15-49); Metamyelocytes % 1 % (0-0); Monocytes % (Manual) 11 % (1-12); Platelet Estimate NORMAL (NORMAL); RBC Morphology NORMAL (NORMAL); Segmented Neutrophils % 36 % (38-78)
[2017-12-17] MEDS: INSULIN LISPRO 1 UNIT/0.01 ML UNIT SQ SCH (07:09)
[2017-12-17] MEDS: metFORMIN 500 MG TABLET PO SCH (07:13)
[2017-12-17] MEDS: LEVOTHYROXINE 100 MCG TABLET PO SCH (07:13)
[2017-12-17] MEDS ORDERED: LEVOFLOXACIN 750 MG/150 ML BAG IV SCH (09:00)
[2017-12-17] MEDS: INSULIN GLARGINE, HUMAN 1 UNIT/0.01 ML SQ SCH (09:02)
--- NOTE | 2017-12-17 11:27 | Discharge Summary ---
Medical - DS: Prov Patient information: Note initiated : 12/17/17 at 11:16 am Service Date, if different from initiated Date: [] Patient: Darlene Douglas 82 y/o M admitted on 12/12/17 for UTI, Decreased LOC/ Bilateral Lower Lobe Pneumonia. Chief Complaint: [] Date of admission: 12/12/17 15:44 Discharge date: 12/17/17 Primary care physician: Enmanuel Mullins Admitting clinician: Jeremias Hull Attending physician on admission: Jeremias Hull Consults: 12/12/17 13:43 Consult to Physician [CONS] Stat Comment: Consulting Provider: Jeremias Hull Reason For Exam: Physician to Consult Discharging clinician: Rainer Guidry Medical - DS: Meds - Discharge Medications Prescriptions: LORazepam [Ativan] 2 mg PO Q4HP PRN #100 ml PRN Reason: Anxiety morphine 10 mg PO Q2HP PRN #100 ml PRN Reason: PAIN/ANXIETY Active and Home Medications: Home Medications Aspirin [Jeovany Chewable Aspirin] 81 mg PO DAILY 09/18/17 [History Confirmed Last Taken Unknown] Dabigatran Etexilate Mesylate [Pradaxa] 150 mg PO BID 09/18/17 [History Confirmed 12/13/17 Last Taken Unknown] Fish Oil 1,000 mg PO DAILY 09/18/17 [History Confirmed 12/13/17 Last Taken Unknown] HYDROcodone/ACETAMINOPHEN [[place] 7.5-325 Tablet] 1 each PO Q6 PRN 09/18/17 [ History Confirmed 12/13/17 Last Taken Unknown] Insulin Glargine,Hum.rec.anlog [Lantus Solostar] 25 unit SQ DAILY 09/18/17 [ History Confirmed 12/13/17 Last Taken Unknown] Levothyroxine Sodium 200 mcg PO DAILY 09/18/17 [History Confirmed 12/13/17 Last Taken Unknown] Losartan Potassium [Cozaar] 25 mg PO DAILY 09/18/17 [History Confirmed 12/13/17 Last Taken Unknown] Multivitamin [Men's Multi-Vitamin] 1 each PO DAILY 09/18/17 [History Confirmed 12/13/17 Last Taken Unknown] Sennosides [Senna] 8.6 mg PO BID 09/18/17 [History Confirmed 12/13/17 Last Taken Unknown] Tamsulosin [Flomax] 0.4 mg PO HS 09/18/17 [History Confirmed 12/13/17 Last Taken Unknown] Topiramate [Topamax] 50 mg PO BID 09/18/17 [History Confirmed 12/13/17 Last Taken Unknown] levETIRAcetam [Keppra] 500 mg PO BID 09/18/17 [History Confirmed 12/13/17 Last Taken Unknown] metFORMIN HCL [Glucophage] 500 mg PO BID 09/18/17 [History Confirmed 12/13/17 Last Taken Unknown] Acetaminophen 500 mg PO Q6H [facility] 3,000 mg 12/13/17 [History Confirmed 12/13/17 Last Taken Unknown] Dulcolax 10 mg 12/13/17 [History Confirmed 12/13/17 Last Taken Unknown] Fleet Enema Extra 1 applic 12/13/17 [History Last Taken Unknown] Milk of Magnesia 30 ml PO PRN 12/13/17 [History Last Taken Unknown] Omeprazole 20 mg PO QHS 12/13/17 [History Confirmed 12/13/17 Last Taken Unknown] Sertraline HCl 25 mg PO QDAY 12/13/17 [History Confirmed 12/13/17 Last Taken Unknown] Sulfamethoxazole-Tmp Ss Tablet 1 tablet PO DAILY 12/13/17 [History Confirmed Last Taken Unknown] Medical - DS: Hosp Hospital course: Mr. Douglas is a 82 year old Male who is a resident of [facility], was found to be lethargic, in a confused state and was subsequently referred to [facility] ER for further evaluation. The patient has had intermittent urinary outlet obstruction and had a Gould catheter placed roughly a week and a half ago. He has been recently treated for UTI. Initial workup was significant for bibasilar infiltrates on CT along with pyuria on UA along with 20 percent bands. He has been getting progressively weak over the last few days and has lost appetite. The patient was admitted to the hospital with urosepsis and Pneumonia. The patient was treated with IV fluids adn antibiotics with good response from the infection stand point, he however continued to remain weak during the hospital stay. The patient was urine CX was positive for enterococcus his vitals and lab work showed signs of improvement but clinically he remained weak and did not participate much in rehab or therapy. The patients Daughter who is also the POA was at the patients bed side most of the time, during the hospital stay, she noted that patient condition has been going down hill over many years now and patient at the the [facility] is usually wheel chair bound, not eating much anyway and does not participate in rehab. He did not wish to continue to live like this. The patient did not talk much with me, but the patients daughter noted that the patient had no desire to live on in this condition, he is presently refusing to take his medications orally as well as not eating much or drinking much. Given the overall poor prognosis, it was decide after prolonged discussions with the family that palliative care/ comfort care is the best choice for the patient especially in light of poor overall prognosis, he has very poor functional score. He had had recurrent infections and has been to the ER 11 times over the last 1 yr as per family The patient will be discharged back to the [facility] for palliative care. His non essential medications will be discontinued. This has been reviewed with the patients daughter. Discharge diagnosis: Pneumoina, UTI, - Time Spent with Patient Total time spent providing and/or coordinating discharge services: Greater than 30 minutes Medical - DS: Exam - Constitutional Vitals: Vital Signs Temp Pulse Pulse Resp BP Pulse Ox 12/17/17 10:45 98.4 F 16 130/76 92 12/17/17 09:04 71 18 12/17/17 06:17 98 F 16 139/73 92 12/17/17 04:00 98.1 F 71 18 131/72 100 12/16/17 23:50 97.8 F 70 18 139/78 96 12/16/17 21:44 72 12/16/17 21:42 98 12/16/17 19:28 97.6 F 70 16 119/72 93 12/16/17 16:00 97.9 F 64 16 144/79 96 12/16/17 11:26 97.4 F 16 131/70 96 Intake and Output 12/16/17 12/17/17 12/17/17 21:59 05:59 13:59 Intake Total 1177 / 1177 150 / 150 100 / 100 Output Total 750 / 750 800 / 800 Balance 427 / 427 -650 / -650 100 / 100 Intake: IV 1177 / 1177 100 / 100 100 / 100 Ampicillin 2 gm In Sodium 200 / 200 100 / 100 100 / 100 Chloride 0.9% 100 ml @ 100 mls/ hr IV Q6H [facility] Rx#:[id number] Lactated Ringers 1,000 ml @ 50 977 / 977 mls/hr IV .Q20H [facility] Rx#: [id number] Oral 50 / 50 Output: Urine Catheter Amount 750 / 750 800 / 800 Other: # Bowel Movements 1 # of times incontinent of 1 Bowels Additional comments: Constitutional; sleepy Eyes- No icterus, , No periorbital swelling Ears- Ext ear normal, Neck- Midline trachea, supple Respiratory system: Air Entry equal on both sides, No crackles or wheezing, no rhonchi. hellen basilar crackles noted MANAGER REVIEW- AOOx1 , drowys, moves extremities, opens eyes to verbal commands. Medical - DS: Data Labs on day of discharge: Labs from last 24 hours 12/17/17 12/17/17 04:30 04:30 WBC 4.5 RBC 2.95 L Hgb 9.0 L Hct 27.0 L MCV 91.6 MCH 30.4 MCHC 33.2 RDW 12.9 Plt Count 227 MPV 7.8 Total Counted 100 Seg Neutrophils % 36 L Band Neutrophils % 18 H Lymphocytes % 28 Monocytes % (Manual) 11 Eosinophils % (Manual) 1 Basophils % (Manual) 1 Metamyelocytes % 1 H WBC Morphology Normal Reactive Lymphocytes 4 H Platelet Estimate Normal RBC Morphology Normal Sodium 141 Potassium 3.5 Chloride 107 Carbon Dioxide 26 Anion Gap 8.0 BUN 12 Creatinine 0.6 L GFR Calculation 94 Glucose 93 Uric Acid 3.4 Calcium 7.9 L Phosphorus 1.9 L Magnesium 1.7 Total Bilirubin 0.3 Direct Bilirubin < 0.2 GGT 29 AST 17 ALT 17 Alkaline Phosphatase 79 Lactate Dehydrogenase 191 Total Protein 5.0 L Albumin 2.6 L Globulin 2.4 Albumin/Globulin Ratio 1.1 Triglycerides 244 H Preliminary micro results at discharge 12/14/17 11:43 Blood Culture - Preliminary Blood 12/14/17 11:48 Blood Culture - Preliminary Blood 12/12/17 11:45 Blood Culture - Preliminary Blood Medical - DS: A/P - Patient/Caregiver Discharge Instructions Activity: increase activity as tolerated Diet: Regular Diet Additional Instructions: Patient is being discharged back to [facility] as a palliative care patient, He will complete the course of antibiotics if he is able to and choses to take po antibiotics. His home medication list has been updated for comfort care Increase activity as tolerated Patient will need ASSISTED FEEDING at the [facility] if the patient wishes to eat. Overall prognosis is poor - Follow up Plan Follow up with: Radu Sommer MD [Physician] - Disposition: Home Health Service Prognosis: Undetermined Rehab Potential: Undetermined I certify that the patient requires SNF services: No Overall status at discharge: patient is not back to baseline
[2017-12-18 09:12] LABS: Levetiracetam (Keppra) 62.1 mcg/mL
== END 2017-12-17 13:12 | disposition home health service (06) | DRG 871 ==
LOC: ED 10:07 → MEDSUR 15:44
PROVIDERS: ADMIT Internal Medicine; ATTEND Internal Medicine